=== PATIENT | female | born 1995 | race Caucasian/White ===

== ENCOUNTER 2017-10-15 20:16 | Emergency (ER) | payer OTHER ==
[~2017-10-15] VITALS: Ht 180.3 cm; Wt 87.6 kg
[2017-10-15] MEDS ORDERED: ACETAMINOPHEN 325 MG TAB PO ONE (21:00)
[2017-10-15 22:09] VITALS: BP 105/65
== END 2017-10-15 22:10 | disposition home or self-care (01) ==
LOC: FSED 20:16
DX: M54.5 Low back pain (principal); R10.84 Generalized abdominal pain; S39.012A Strain of muscle, fascia and tendon of lower back, initial encounter; O21.0 Mild hyperemesis gravidarum; Z3A.15 15 weeks gestation of pregnancy
CPT/HCPCS: 81003; 81025; 99283